=== PATIENT | female | born 2000 | race Caucasian/White ===

== ENCOUNTER 2023-04-25 00:05 | Observation (INO) | payer MEDICAID ==
[~2023-04-25] VITALS: Ht 157.5 cm; Wt 81.6 kg
[2023-04-25 00:20] VITALS: BP 116/59; PULSE 71; RESP 18; TEMP 98.4
[2023-04-25] MEDS ORDERED: PREN-543 PO (00:47)
== END 2023-04-25 07:00 | disposition home or self-care (01) ==
LOC: MLD 00:05
PROVIDERS: ADMIT Obstetrics & Gynecology; ATTEND Obstetrics & Gynecology
DX: O62.9 Abnormality of forces of labor, unspecified (principal); Z3A.39 39 weeks gestation of pregnancy
CPT/HCPCS: 81000; G0378